=== PATIENT | male | born 2000 | race Caucasian/White ===

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

== ENCOUNTER 2022-02-13 12:33 | Emergency (ER) | payer BC, OTHER, SELFPAY ==
[2022-02-13 13:04] VITALS: BP 145/90; PULSE 73; RESP 16; TEMP 36.6; O2SAT 99
--- NOTE | 2022-02-13 13:28 | ED.BACK ---
HPI - Back Pain/Injury General Chief Complaint: Back Pain/Injury Stated Complaint: LOWER L BACK PAIN Time Seen by Provider: 02/13/22 13:08 Source: patient Mode of arrival: ambulatory Limitations: no limitations History of Present Illness HPI Narrative: Hugh is an 20-year-old male patient presenting to the clinic today with complaints of a 6 day history of left-sided flank pain. He reports that the pain is intermittent and comes and goes in waves. States that the pain is sharp and sometimes burning. Rates his pain currently a 5/10. Denies any radiation of pain. He denies any urinary symptoms. Last bowel movement was today and he had some diarrhea but he does have a history of IBS. No known back injury. Pain does not change with position changes. No history of kidney stones in the past Related Data Home Medications Medication Instructions Recorded Confirmed No Home Medications 01/05/19 02/13/22 Allergies Allergy/AdvReac Type Severity Reaction Status Date / Time cefdinir Allergy Mild Unknown Verified 02/13/22 12:58 Cephalosporins Allergy Mild Unknown Verified 02/13/22 12:58 acetaminophen [From Tylenol] AdvReac Unknown Verified 02/13/22 12:58 Review of Systems Review of Systems: Pertinent positives per HPI. Patient denies any fever, chills, rash, headache, visual changes, dizziness, cough, runny nose, sore throat, shortness of breath, chest pain, palpitations, nausea, vomiting, diarrhea, constipation, abdominal pain, or any urinary issues. PMFSH Past Medical History Medical History No pertinent past medical history Social History Social History Smoking status: Never smoker Gender identity (if verbalized by the patient): Male Comments At the time of my signature, I reviewed and agree with the nursing past medical, surgical, social, and family history. There is no relevant family history pertinent to the patient complaint. Exam Narrative: General: Well-developed, well nourished, in no apparent distress. Head: Normocephalic, atraumatic. Cardio: Regular rate and rhythm, s1 and s2 normal, no murmur appreciated. Resp: Clear to auscultation bilaterally, no rhonchi, rales, wheezing or rubs. Abdomen: Soft, pliable, bowel sounds present in all quadrants, non-tender to palpation, no organomegly, no CVAT tenderness. Musculoskeletal: No deformity, tender to palpation over the left lower flank, grossly normal range of motion, bilateral lower muscle strength strong and equal, straight leg test negative bilaterally, patellar reflexes 2/4 bilaterally, peripheral pulse strong, no edema, no cyanosis, normal gait and station Course Course Emergency Course: Portions of this record may have been created with voice recognition software. Level of Care: Express Care Visit Vital Signs Vital signs: Vital Signs Temperature 36.6 C 02/13/22 13:04 Pulse Rate 73 02/13/22 13:04 Respiratory Rate 16 02/13/22 13:04 Blood Pressure 145/90 H 02/13/22 13:04 Pulse Oximetry 99 02/13/22 13:04 Temperature 36.6 C 02/13/22 13:04 Pulse Rate 73 02/13/22 13:04 Respiratory Rate 16 02/13/22 13:04 Blood Pressure 145/90 H 02/13/22 13:04 Pulse Oximetry 99 02/13/22 13:04 Vital signs reviewed Transfer Transfered to: [facility] Transportation: Other (Private car) Transfer rationale: Left flank pain rule out ureterolithiasis Accepting physician: No physician name was provided Transfer comments: Spoke with Eli DOVERproofing machine operator nurse for continuity of care-transfer via private car MDM - Back Pain/Injury MDM Narrative Medical decision making narrative: At the time of the patient is resting comfortably on the exam table. Urinalysis was completed was negative for any sign of infection or blood in his urine. I suspect the patient may have ureterolithiasis. Recommend transfer to the ED fo
== END 2022-02-13 13:30 | disposition short-term general hospital (02) ==
PROVIDERS: Emergency Provider Nurse Practitioner Family
DX: R10.9 Unspecified abdominal pain (principal)
CPT/HCPCS: 81003; 99212; G0463

== ENCOUNTER 2022-04-06 08:38 | Emergency (ER) | payer BC, OTHER, SELFPAY ==
--- NOTE | ~2022-04-06 | XR_ITS ---
EXAMINATION: XR lumbar spine min 4V DATE: 04/06/2022 09:40 INDICATION: Left-sided low back pain. TECHNIQUE: 5 views of lumbar spine were obtained. COMPARISON: None. FINDINGS: There is 3 degrees levocurvature of lumbar spine. There are Schmorl's nodes at T12-L1 and L 1-L2. Intervertebral disc heights are normal. There is mild facet joint osteoarthritis on the left at L3-L4 and L4-L5. IMPRESSION: 1. Mild lumbar spondylosis. I called this result to Sirena Yan at 9:47 AM. Reviewed, dictated and finalized at location A. RN DANCER IMPRESSION: 1. Mild lumbar spondylosis. I called this result to Sirena Yan at 9:47 A M.
[2022-04-06 08:47] VITALS: BP 161/80; PULSE 70; RESP 16; TEMP 36.6; O2SAT 100
--- NOTE | 2022-04-06 09:02 | ED.EAR ---
HPI - Ear Problem General Chief complaint: Ear Stated complaint: fluid in ear and back pain Time Seen by Provider: 04/06/22 08:59 Source: patient Mode of arrival: ambulatory Limitations: no limitations History of Present Illness HPI Narrative: Patient is a 21 y/o male who presents to the ED with c/o left ear drainage and left lower back pain. Patient reports he woke up this morning with decreased hearing in his left ear and some clear drainage from his left ear. He denies any pain. Denies any symptoms in the right ear. Denies any fever, cough, congestion, rhinorrhea, sore throat. Patient also mentions having left lower back pain since January. Denies any known injury. He has been evaluated for this previously at an outside ED and by his primary care doctor who referred him to an sales development specialist. Patient states he is unable to get into see the specialist until April 27. He has been unable to get some of the medications he has been prescribed due to the cost. He has been taking diclofenac and tizanidine for the pain. Has not taken anything today. Denies any bowel or bladder incontinence, saddle anesthesia, weakness, abdominal pain, N/V. Related Data Home Medications Medication Instructions Recorded Confirmed diclofenac sodium 50 mg 50 mg PO BID 04/06/22 tablet,delayed release tizanidine 4 mg tablet 4 mg PO BID PRN Spasms 04/06/22 Allergies Allergy/AdvReac Type Severity Reaction Status Date / Time cefdinir Allergy Mild Unknown Verified 04/06/22 08:50 Cephalosporins Allergy Mild Unknown Verified 04/06/22 08:50 acetaminophen [From Tylenol] AdvReac Unknown Verified 04/06/22 08:50 Review of Systems Review of Systems: CONSTITUTIONAL: Denies fever, chills, or sweats. ENT: See HPI. CARDIOVASCULAR: Denies chest pain. RESPIRATORY: Denies cough or dyspnea. GASTROINTESTINAL: Denies incontinence, abdominal pain, nausea, vomiting. GENITOURINARY: Denies incontinence. MUSCULOSKELETAL: See HPI. NEUROLOGIC: Denies headache, tingling, numbness, or weakness. All systems reviewed & are unremarkable except as noted in HPI and below PMFSH Past Medical History Medical History No pertinent past medical history Surgical History Surgical History History of hip surgery R hip impingement Social History Social History Smoking status: Never smoker Gender identity (if verbalized by the patient): Male Exam Narrative: GENERAL: Well appearing, obese, non-toxic, in no acute distress. HEAD: Normocephalic, atraumatic. ENT: Right ear with some cerumen in the EAC, but able to visualize TM, nonerythematous, non-bulging. No significant swelling of R EAC. Left ear cerumen impaction. No otorrhea noticed on exam. No significant swelling of L EAC either. NECK: Supple. No adenopathy, no masses. RESPIRATORY: Airway patent, respirations nonlabored. Clear to auscultation bilaterally, no rales, rhonchi, wheezing. CARDIOVASCULAR: Regular rate and rhythm without murmurs, rubs, or gallops. Radial pulses 2+ and equal bilaterally. ABDOMINAL: Soft, nontender, nondistended, no hepatosplenomegaly. Normoactive BS. MUSCULOSKELETAL: Moves all extremities. Strength/ROM intact without gross deformities. No midline thoracic or lumbar spinal tenderness. No palpable deformities or step offs. Mild left-sided lumbar paraspinal muscle tenderness. No significant SI joint tenderness. SKIN: Warm, dry, normal color. No rashes. NEURO: A&O X3. Speech clear. Cranial nerves II-XII grossly intact. Steady gait. No ataxic movements. PSYCHIATRIC: Appropriate mood and affect. Normal interaction. Course Vital Signs Vital signs: Vital Signs Temperature 97.9 F 04/06/22 08:47 Pulse Rate 70 04/06/22 08:47 Respiratory Rate 16 04/06/22 08:47 Blood Pressure 161/80 H 04/06/22 08:47
[2022-04-06] MEDS: CARBAMIDE PEROXIDE 6.5% OT SOLN 15 ML BTL 5 DROP EACH EAR (09:56)
[2022-04-06] MEDS: HYDROGEN PEROXIDE 3% SOLN(*SP) 473 ML BOTTLE (10:20)
== END 2022-04-06 12:00 | disposition home or self-care (01) ==
PROVIDERS: Emergency Provider Physician Assistant
DX: H61.22 Impacted cerumen, left ear (principal); S39.012A Strain of muscle, fascia and tendon of lower back, initial encounter
CPT/HCPCS: 69209; 72110; 99283; A9270

== ENCOUNTER 2022-04-14 09:07 | Emergency (ER) | payer BC, OTHER, SELFPAY ==
--- NOTE | 2022-04-14 09:14 | ED.NAVMDI ---
HPI - Nausea/Vomiting/Diarrhea General Chief complaint: Nausea/Vomiting/Diarrhea Stated complaint: STOMACH PAIN/DIARRHEA/VOMITING Time Seen by Provider: 04/14/22 09:14 Source: patient and RN notes reviewed History of Present Illness HPI Narrative: Patient is a 21-year-old male who presents to urgent care with complaints of nausea, vomiting and diarrhea. Patient states he woke up not feeling well at 6:00 a.m. this morning, vomited twice and had several loose stools. Patient states that his symptoms are nearly resolved with only residual of nausea. Patient states that he does have a history of IBS and ate 2 triple cheeseburgers before bed last night. Patient also states that he has history of a weak stomach. No other acute complaints. No acute distress noted. Patient aware the plan of care. Some parts of this dictation were generated by voice recognition software and may contain typographical and/or grammatical inaccuracies. Related Data Home Medications Medication Instructions Recorded Confirmed diclofenac sodium 50 mg 50 mg PO BID 04/06/22 tablet,delayed release tizanidine 4 mg tablet 4 mg PO BID PRN Spasms 04/06/22 Allergies Allergy/AdvReac Type Severity Reaction Status Date / Time cefdinir Allergy Mild Unknown Verified 04/06/22 08:50 Cephalosporins Allergy Mild Unknown Verified 04/06/22 08:50 acetaminophen [From Tylenol] AdvReac Unknown Verified 04/06/22 08:50 Review of Systems Review of Systems: CONSTITUTIONAL: Denies fever, chills, or sweats. EYES: Denies visual changes, redness, or discharge. ENT: Denies rhinorrhea, congestion, sore throat, or otalgia. CARDIOVASCULAR: Denies chest pain, palpitations, or edema. RESPIRATORY: Denies cough or dyspnea. GASTROINTESTINAL: Reports vomiting, diarrhea and nausea GENITOURINARY: Denies dysuria or hematuria. SKIN: Denies rash or itching. MUSCULOSKELETAL: Denies back pain, joint pain, or myalgia. NEUROLOGIC: Denies headache, numbness, or weakness. All other systems reviewed are negative, except as documented in HPI. [facility] Past Medical History Medical History No pertinent past medical history Surgical History Surgical History History of hip surgery R hip impingement Social History Social History Smoking status: Never smoker Gender identity (if verbalized by the patient): Male Comments At the time of my signature, I reviewed and agree with the nursing past medical, surgical, social, and family history. There is no relevant family history pertinent to the patient complaint. Exam Narrative: GENERAL: This is a well-nourished, well-developed patient, in no apparent distress. HEAD: normocephalic, atraumatic. EYES: PERRL. Sclera clear/white. Vision is grossly intact. EARS: External ears normal NOSE: External nose normal with no obvious nasal discharge, nares without redness, no rhinorrhea. THROAT: Mucous membranes moist NECK: Neck supple CARDIOVASCULAR: Regular rate and rhythm RESPIRATORY: Clear to auscultation. Breath sounds equal bilaterally. No wheezes, rales, or rhonchi. GASTROINTESTINAL: Abdomen soft, non-tender, nondistended. Bowel sounds are hypoactive. SKIN: warm, intact with no suspicious lesions or rash, good texture and turgor. NEURO: awake, alert, and oriented to person, place and time. There were no obvious focal neurologic abnormalities. EXTREMITIES: No clubbing, cyanosis, or edema. Course Course Level of Care: Express Care Visit Vital Signs Vital signs: Vital Signs Temperature 97.4 F L 04/14/22 09:16 Pulse Rate 61 04/14/22 09:16 Respiratory Rate 16 04/14/22 09:16 Blood Pressure 155/81 H 04/14/22 09:16 Pulse Oximetry 99 04/14/22 09:16 Oxygen Delivery Room Air 04/14/22 09:16 Temperature 97.4 F L 04/14/22 09:16 Pulse Rate 61 02
[2022-04-14 09:16] VITALS: BP 155/81; PULSE 61; RESP 16; TEMP 36.3; O2SAT 99
== END 2022-04-14 09:45 | disposition home or self-care (01) ==
PROVIDERS: Emergency Provider Nurse Practitioner Family
DX: R11.2 Nausea with vomiting, unspecified (principal); R19.7 Diarrhea, unspecified
CPT/HCPCS: 99213; G0463

== ENCOUNTER 2022-07-21 11:02 | Emergency (ER) | payer BC, OTHER, SELFPAY ==
[2022-07-21 11:04] VITALS: BP 143/84; PULSE 76; RESP 15; TEMP 36.6; O2SAT 100
--- NOTE | 2022-07-21 12:20 | ED.EAR ---
HPI - Ear Problem General Chief complaint: Ear Stated complaint: double ear infection Time Seen by Provider: 07/21/22 11:10 History of Present Illness HPI Narrative: 22-year-old male presented to the ED for evaluation of bilateral ear pain. Patient states the pain started approximate 1 week ago. Patient just completed a course of amoxicillin. Patient states this antibiotic did not help his symptoms. Patient has not been taking any decongestant and has not been taking any over the medications for pain control. Related Data Home Medications Medication Instructions Recorded Confirmed diclofenac sodium 50 mg 50 mg PO BID 04/06/22 tablet,delayed release tizanidine 4 mg tablet 4 mg PO BID PRN Spasms 04/06/22 Allergies Allergy/AdvReac Type Severity Reaction Status Date / Time cefdinir Allergy Mild Unknown Verified 07/21/22 11:03 Cephalosporins Allergy Mild Unknown Verified 07/21/22 11:03 acetaminophen [From Tylenol] AdvReac Unknown Verified 07/21/22 11:03 Review of Systems Review of Systems: All systems reviewed & are unremarkable except as noted in HPI and below PMFSH Past Medical History Medical History No pertinent past medical history Surgical History Surgical History History of hip surgery R hip impingement Social History Social History Smoking status: Never smoker Gender identity (if verbalized by the patient): Male Exam Narrative: APPEARANCE: Well appearing, no pain, no distress, well-nourished. HEAD: normocephalic, atraumatic. EYES: PERRLA/EOMI, conjunctivae clear. NOSE: Normal no drainage EARS: Bilateral tympanic distention. No erythema. THROAT: Pharynx clear, no exudate. NECK: Supple. No adenopathy, no masses. RESPIRATORY: Airway patent, respirations nonlabored. Clear to auscultation bilaterally, no rales, rhonchi, wheezing. CARDIOVASCULAR: Regular rate and rhythm without murmurs rubs or gallops. ABDOMINAL: Soft, nontender, nondistended, normal bowel sounds MUSCULOSKELETAL: Moves all extremities. Strength/ROM intact, No edema, No calf tenderness. NEURO: Alert. Cranial nerves II through XII intact. Grossly intact SKIN: Warm, dry. Normal Color Course Course Emergency Course: 22-year-old male presented the ED for evaluation of bilateral ear pain. Patient does have fluid behind both ears. Patient was advised to take a decongestant and advised to take [id number] medications for pain control. Patient will be continued on antibiotics and was encouraged to have close follow-up with ENT. All questions and concerns were addressed and patient was comfortable with the plan for discharge and close follow-up. Vital Signs Vital signs: Vital Signs Temperature 97.9 F 07/21/22 11:04 Pulse Rate 76 07/21/22 11:04 Respiratory Rate 15 07/21/22 11:04 Blood Pressure 143/84 H 07/21/22 11:04 Pulse Oximetry 100 07/21/22 11:04 Oxygen Delivery Room Air 07/21/22 11:04 Temperature 97.9 F 07/21/22 11:04 Pulse Rate 76 07/21/22 11:04 Respiratory Rate 15 07/21/22 11:04 Blood Pressure 143/84 H 07/21/22 11:04 Pulse Oximetry 100 07/21/22 11:04 Oxygen Delivery Room Air 07/21/22 11:04 Medical Decision Making Vital Signs Vital Signs: Vital Signs Temperature 97.9 F 07/21/22 11:04 Pulse Rate 76 07/21/22 11:04 Respiratory Rate 15 07/21/22 11:04 Blood Pressure 143/84 H 07/21/22 11:04 Pulse Oximetry 100 07/21/22 11:04 Oxygen Delivery Room Air 07/21/22 11:04 Temperature 97.9 F 07/21/22 11:04 Pulse Rate 76 07/21/22 11:04 Respiratory Rate 15 07/21/22 11:04 Blood Pressure 143/84 H 07/21/22 11:04 Pulse Oximetry 100 07/21/22 11:04 Oxygen Delivery Room Air 07/21/22 11:04 Discharge Plan Discharge Clinical Impression: Otitis media Trev
== END 2022-07-21 12:38 | disposition home or self-care (01) ==
PROVIDERS: Emergency Provider Emergency Medicine
DX: H66.93 Otitis media, unspecified, bilateral (principal)
CPT/HCPCS: 99281; 99283